=== PATIENT | female | born 1990 | race African-American/Black ===

== ENCOUNTER 2019-07-08 17:49 | Emergency (ER) | payer MEDICAID, OTHER ==
[~2019-07-08] VITALS: Ht 162.6 cm; Wt 109.9 kg
[2019-07-08 17:55] VITALS: BP 136/87
--- NOTE | 2019-07-08 18:36 | NUR ---
PT TO ROOM AT THIS TIME.
--- NOTE | 2019-07-08 18:56 | NUR ---
URINE COLLECTED AND SENT TO LAB.
--- NOTE | 2019-07-08 18:57 | NUR ---
Pt arrives to ed with increased urinary frequency and pain. Pt reports feels like a previous uti. Pt currently .
[2019-07-08 19:26] LABS: CULTURE INDICATED? YES; MICROSCOPIC INDICATED
--- NOTE | 2019-07-08 20:14 | NUR ---
Patient/Caregiver given discharge instructions and they have confirmed that they understand the instructions. Patient ambulatory with steady gait.
== END 2019-07-08 20:15 | disposition home or self-care (01) ==
LOC: ED 20:10
DX: O23.11 Infections of bladder in pregnancy, first trimester (principal); M54.5 Low back pain; K21.9 Gastro-esophageal reflux disease without esophagitis; Z3A.09 9 weeks gestation of pregnancy
CPT/HCPCS: 76815; 81001; 87086; 99284